=== PATIENT | female | born 1975 | race African-American/Black ===

== ENCOUNTER 2018-03-07 09:43 | Emergency (ER) | payer OTHER ==
[~2018-03-07] VITALS: Ht 190.5 cm; Wt 149.2 kg
[~2018-03-07 09:43] MED LIST: ASPIR 8181 MG ORAL; BENAZEPRIL HCL40 MG ORAL; HYDROCHLOROTHIA25 MG ORAL; KEFLEX500 MG ORAL; METFORMIN HCL1000 M1 ORAL; NORCO 5-325 TA1 EACH ORAL; OMEPRAZOLE20 M2 ORAL; PEPCID20 MG ORAL; POTASSIUM CHLO10 ME2 PO; TENORMIN50 MG ORAL; XANAX2 MG ORAL
[2018-03-07] MEDS ORDERED: SEROQUEL100 MG ORAL ×2 (09:58→10:25)
[2018-03-07] MEDS ORDERED: GABAPENTIN300 MG ORAL (09:58)
[2018-03-07] MEDS ORDERED: QUETIAPINE FUMA25 MG ORAL ×2 (09:58→10:25)
[2018-03-07 10:22] VITALS: BP 146/93
[2018-03-07] MEDS ORDERED: TRAMADOL HCL50 MG ORAL (10:25)
[2018-03-07] MEDS ORDERED: CEPHALEXIN500 MG ORAL (10:25)
[2018-03-07] MEDS ORDERED: Ketorolac 30mg Inj IM ONE (10:30)
[2018-03-07 10:36] VITALS: BP 142/87
[2018-03-07] MEDS ORDERED: LORazepam 1mg tab ONE (10:39)
[2018-03-07] MEDS ORDERED: LORazepam 1mg tab ORAL ONE (10:45)
--- NOTE | 2018-03-10 07:30 | Emergency Room Report ---
History of Present Illness General Chief Complaint: Pain Source: Patient Present Illness HPI 42-year-old female presents ED for evaluation. Notes history of sciatica. States that she's been having persistent pain going down both of her legs for several weeks now. Normally takes gabapentin but states it is not helping. Pain is sharp, 8 out of 10, radiating down both legs. Denies bowel or bladder incontinence. Denies any leg or motor weakness. All states she feels very anxious. Denies SI or HI. Denies hearing voices. Also notes a "insect bite" on her right sided abdomen 2 days. Patient denies fevers or chills. No other aggravating relieving factors. Denies any other associated symptoms Allergies: Coded Allergies: No Known Allergies (Unverified , 01/03/14) Patient History Past Medical History: DM, HTN Past Surgical History: none Pertinent Family History: none Social History: Denies: smoking, alcohol use, drug use Now: No Immunizations: UTD Reviewed Nursing Documentation: PMH: Agreed; PSxH: Agreed Nursing Documentation-PMH Past Medical History: No History, Except For Hx Hypertension: Yes Hx Diabetes: Yes Review of Systems All Other Systems: negative except mentioned in HPI Physical Exam Vital Signs Date Time Temp Pulse Resp B/P (MAP) Pulse Ox O2 Delivery O2 Flow Rate FiO2 03/07/18 09:49 97.9 115 17 146/93 98 Room Air Sp02 EP Interpretation: reviewed, normal General Appearance: no apparent distress, alert, GCS 15, non-toxic Head: normocephalic Eyes: bilateral eye normal inspection, bilateral eye PERRL ENT: normal ENT inspection Neck: normal inspection Respiratory: chest non-tender, lungs clear, normal breath sounds, speaking full sentences Cardiovascular #1: regular rate, rhythm, no edema Gastrointestinal: normal bowel sounds, non tender, soft, non-distended, no guarding, no rebound Rectal: deferred Genitourinary: no CVA tenderness Musculoskeletal: back normal, gait/station normal, normal range of motion, non- tender Neurologic: alert, oriented x3, responsive, motor strength/tone normal, sensory intact, speech normal Psychiatric: no suicidal/homicidal ideation, no delusions, anxious Skin: other - pustular head R abdomen. no induration/erythema. no discharge Lymphatic: normal inspection Medical Decision Making Diagnostic Impression: Primary Impression: Insect bite Qualified Codes: W57.XXXA - Bitten or stung by nonvenomous insect and other nonvenomous arthropods, initial encounter Additional Impression: Sciatica Qualified Codes: M54.31 - Sciatica, right side; M54.32 - Sciatica, left side ER Course Hospital Course 42-year-old female presents to ED with swelling/redness to abdomen, back pain Differential diagnoses include: Cellulitis, dermatitis, insect bite, abscess Clinical course Patient placed on stretcher. After initial history, physical exam reveals an obese female in no acute distress. On exam there is a site for mild erythema and induration to the R side of abdomen. There is no fluctuance. There is no tenderness. Patient has 5 out of 5 motor strength in the lower extremities. No sensory deficits. Given Toradol here. We will discharge with antibiotics. we will refill her seroquel. safe for discharge with close outpatient followup Diagnosis - insect bite, sciatica stable and discharged to home with prescription for keflex, tramadol, seroquel. Instructed to followup with PMD. Instructed return to ED if symptoms recur or worsen Last Vital Signs Date Time Temp Pulse Resp B/P (MAP) Pulse Ox O2 Delivery O2 Flow Rate FiO2 03/07/18 10:46 97.9 03/07/18 10:36 110 17 142/87 98 Room Air Status: improved Disposition: HOME, SELF-CARE Condition: Stable Scripts Cephalexin* (KEFLEX*) 500 Mg Capsule 500 MG ORAL EVERY 6 HOURS for 7 Days, CAP Prov: Navin Orozco MD 03/07/18 Tramadol Hcl* (ULTRAM*) 50 Mg Tablet 50 MG ORAL Q6H PRN for For Pain, #20 TAB 0 Refills Prov: Navin Orozco MD 03/07/18 Quetiapine Fumarate* (SEROQUEL*) 25 Mg Tablet 300 MG ORAL DAILY for 14 Days, TAB Prov: Navin Orozco MD 03/07/18 Quetiapine Fumarate* (SEROQUEL*) 100 Mg Tablet 100 MG ORAL TWICE A DAY for 14 Days, TAB Prov: Navin Orozco MD 03/07/18 Referrals: [facility],REFER Patient Instructions: Sciatica, [id number], Insect Bite, [id number] Navin Orozco MD Mar 10, 2018 07:30
== END 2018-03-07 10:47 | disposition home or self-care (01) ==
LOC: EMR 10:17
DX: S30.861A Insect bite (nonvenomous) of abdominal wall, initial encounter (principal); W57.XXXA Bitten or stung by nonvenomous insect and other nonvenomous arthropods, initial encounter; Y92.89 Other specified places as the place of occurrence of the external cause; M54.31 Sciatica, right side; M54.32 Sciatica, left side; E11.9 Type 2 diabetes mellitus without complications; I10 Essential (primary) hypertension
CPT/HCPCS: 96372; 99283; J1885

== ENCOUNTER 2018-03-12 15:56 | Emergency (ER) | payer OTHER ==
[~2018-03-12] VITALS: Ht 190.5 cm; Wt 149.2 kg
[~2018-03-12 15:56] MED LIST changes: +CEPHALEXIN500 MG ORAL; +GABAPENTIN300 MG ORAL; +QUETIAPINE FUMA25 MG ORAL; +SEROQUEL100 MG ORAL; +TRAMADOL HCL50 MG ORAL
[2018-03-12 16:00] VITALS: BP 133/83
--- NOTE | 2018-03-12 16:10 | Emergency Room Report ---
History of Present Illness General Chief Complaint: General Complaint Source: Medical Record Present Illness HPI 42-year-old female patient presents ER brought in by ambulance complaining of chest discomfort and anxiety. Reports symptoms present for one day. Reports history of anxiety in the past. Denies history of heart attack or stroke. Reports history of high blood pressure, states she has not been taking her blood pressure medications for "months". Reports history of smoking cigarettes. Denies calf pain. Denies shortness of breath. Reports it feels like "an air bubble" is in her chest. Denies trauma or injury. Reports pain is reproducible. Denies fever, abdominal pain, headache, shortness of breath. Denies thoughts of hurting herself or others at this time. Reports previously took lorazepam for anxiety, requesting prescription. Allergies: Coded Allergies: No Known Allergies (Unverified , 01/03/14) Patient History Past Medical History: see triage record Last Menstrual Period: 02/13/18 Reviewed Nursing Documentation: PMH: Agreed; PSxH: Agreed Nursing Documentation-PMH Past Medical History: No History, Except For Hx Hypertension: Yes Hx Diabetes: Yes History Of Psychiatric Problem: Yes Review of Systems All Other Systems: negative except mentioned in HPI Physical Exam Vital Signs Date Time Temp Pulse Resp B/P (MAP) Pulse Ox O2 Delivery O2 Flow Rate FiO2 03/12/18 15:58 98.1 113 18 133/83 100 Room Air Sp02 EP Interpretation: reviewed, normal General Appearance: well appearing, no apparent distress, alert, GCS 15, non- toxic Head: normocephalic, atraumatic Eyes: bilateral eye normal inspection, bilateral eye PERRL ENT: hearing grossly normal, normal pharynx, no angioedema, normal voice, uvula midline, moist mucus membranes Neck: full range of motion Respiratory: lungs clear, normal breath sounds, no rhonchi, no respiratory distress, no accessory muscle use, no wheezing, speaking full sentences, other - sternum TTP, no crepitus, no stridor Cardiovascular #1: regular rate, rhythm, no edema Cardiovascular #2: 2+ radial (R), 2+ radial (L) Gastrointestinal: non tender, soft, no mass, non-distended, no guarding, no rebound Musculoskeletal: back normal, digits/nails normal, gait/station normal, normal range of motion, non-tender, no calf tenderness, Meaghan's Sign negative Psychiatric: mood/affect normal Skin: no rash Medical Decision Making PA Attestation Dr. Orozco is my supervising Physician whom patient management has been discussed with. Diagnostic Impression: Primary Impression: Anxiety Additional Impressions: Non-cardiac chest pain Amphetamine user ER Course Pt. presents to the ED c/o chest pain. Ddx considered but are not limited to WI, arrhythmia, DVT, PE, penumonia, bronchitis, costochondritis, anxiety, pneumothorax. No calf swelling, negative Meaghan's sign, low suspicion for DVT pr PE per Well's criteria. Low suspicion for cardiac cause of pain. Will order labs to rule out. On PE, chest is TTP; chest pain likely musculoskeletal in nature. Patient instructed to take NSAIDs as needed for pain symptoms. Vital signs: are WNL, pt. is afebrile Ordered X-ray, labs, troponin, EKG and pain medication. Patient tachycardic, will continue to monitor. ER COURSE provided with aspirin pain. Provided with Ativan for anxiety. CBC and CMP unremarkable, no elevation WBCs or LFTs urine negative Urine drug screen positive for amphetamine, advised patient against use, patient reports agreement. Troponin negative CXR negative for acute disease, EKG shows no ST elevations or atrial fibrillation. Advised to discontinue smoking cigarettes. patient with close outpatient follow-up. Followup with primary care provider, discuss referral to cardiology. patient denies shortness of breath, EKG and chest x-ray unremarkable, troponin negative, low suspicion for WI or CHF. Chest pain reproducible, likely musculoskeletal in nature. Discuss anxiety medications with PCP. provide with contact information for mental health clinics to followup with. Will not provide refill of Lorazepam rx at discharge. DISCHARGE: -Rx provided for Tylenol for pain symptoms. At this time pt. is stable for d/c to home. Patient is resting comfortably, in no acute distress, nontoxic appearing, talking without difficulty. Will provide printed patient care instructions, and any necessary prescriptions. Patient instructed to follow with primary care provider in 1-3 days. Followup with primary care provider for further pain medication rx. Followup with learning specialist and eye doctor. Care plan and follow up instructions have been discussed with the patient prior to discharge. Take medications as directed. Patient questions asked and answered. Patient reports understanding and agreement to treatment plan. ER precautions given, patient instructed to return to ER immediately for any new or worsening of symptoms. - Please note that this Emergency Department Report was dictated using iGuiderste[employer]ician technology software, occasionally this can lead to erroneous entry secondary to interpretation by the dictation equipment. Labs Test 03/12/18 16:20 White Blood Count 3.7 K/UL (4.8-10.8) Red Blood Count 4.01 M/UL (4.20-5.40) Hemoglobin 11.6 G/DL (12.0-16.0) Hematocrit 33.6 % (37.0-47.0) Mean Corpuscular Volume 84 FL (80-99) Mean Corpuscular Hemoglobin 29.0 PG (27.0-31.0) Mean Corpuscular Hemoglobin Concent 34.6 G/DL (32.0-36.0) Red Cell Distribution Width 13.8 % (11.6-14.8) Platelet Count 297 K/UL (150-450) Mean Platelet Volume 5.1 FL (6.5-10.1) Neutrophils (%) (Auto) 37.5 % (45.0-75.0) Lymphocytes (%) (Auto) 47.5 % (20.0-45.0) Monocytes (%) (Auto) 10.1 % (1.0-10.0) Eosinophils (%) (Auto) 2.7 % (0.0-3.0) Basophils (%) (Auto) 2.2 % (0.0-2.0) Urine HCG, Qualitative Negative (NEGATIVE) Sodium Level 138 MMOL/L (136-145) Potassium Level 4.1 MMOL/L (3.5-5.1) Chloride Level 104 MMOL/L (98-107) Carbon Dioxide Level 25 MMOL/L (21-32) Anion Gap 9 mmol/L (5-15) Blood Urea Nitrogen 7 mg/dL (7-18) Creatinine 0.7 MG/DL (0.55-1.30) Estimat Glomerular Filtration Rate > 60 mL/min (>60) Glucose Level 111 MG/DL (74-106) Calcium Level 8.6 MG/DL (8.5-10.1) Total Bilirubin 0.3 MG/DL (0.2-1.0) Aspartate Amino Transf (AST/SGOT) 35 U/L (15-37) Alanine Aminotransferase (ALT/SGPT) 26 U/L (12-78) Alkaline Phosphatase 65 U/L (46-116) Troponin I 0.003 ng/mL (0.000-0.056) Total Protein 8.1 G/DL (6.4-8.2) Albumin 2.9 G/DL (3.4-5.0) Globulin 5.2 g/dL Albumin/Globulin Ratio 0.6 (1.0-2.7) Urine Opiates Screen Negative (NEGATIVE) Urine Barbiturates Screen Negative (NEGATIVE) Phencyclidine (PCP) Screen Negative (NEGATIVE) Urine Amphetamines Screen Positive (NEGATIVE) Urine Benzodiazepines Screen Negative (NEGATIVE) Urine Cocaine Screen Negative (NEGATIVE) Urine Marijuana (THC) Screen Negative (NEGATIVE) EKG Diagnostic Results Rate: tachycardiac Rhythm: NSR ST Segments: no acute changes ASA given to the pt in ED: Yes PA Scribe Text Amarjit Tobar PA-C Rhythm Strip Diag. Results EP Interpretation: yes Rate: 105 Rhythm: NSR, no PVC's, no ectopy PA Scribe Text Amarjit Tobar PA-C Chest X-Ray Diagnostic Results Chest X-Ray Diagnostic Results : Chest X-Ray Ordered: Yes # of Views/Limited/Complete: 1 View Indication: Chest Pain EP Interpretation: Yes PA Xray: Interpretation reviewed, by supervising MD, and agrees with findings. Interpretation: no consolidation, no effusion, no pneumothorax, no acute cardiopulmonary disease Impression: No acute disease PA Scribe Text Amarjit Tobar PA-C Last Vital Signs Date Time Temp Pulse Resp B/P (MAP) Pulse Ox O2 Delivery O2 Flow Rate FiO2 03/12/18 15:58 98.1 113 18 133/83 100 Room Air Status: improved Disposition: HOME, SELF-CARE Condition: Stable Scripts Acetaminophen* (TYLENOL EXTRA STRENGTH*) 500 Mg Tablet 500 MG ORAL Q8H PRN for Prn Headache/Temp > 101, #30 TAB 0 Refills Prov: Sergio Tobar 03/12/18 Patient Instructions: Generalized Anxiety Disorder, Nonspecific Chest Pain, [id number] Additional Instructions: Followup with primary care provider in 2-3 days, discuss blood pressure medications and referral to cardiology. Follow-up with mental health urgent care to discuss Take medications as directed. Patient questions asked and answered. ER precautions given, patient instructed to return to ER immediately for any new or worsening of symptoms. Sergio Tobar Mar 12, 2018 16:10
[2018-03-12] MEDS ORDERED: LORazepam 0.5mg tab ORAL ONE (16:30)
--- NOTE | 2018-03-12 16:45 | Diagnostic Imaging Report ---
Indication: Chest pain Technique: One view of the chest Comparison: Findings: Lungs and pleural spaces are clear. Heart size is normal Impression: No acute process
[2018-03-12 17:03] LABS: BASOPHILS % (AUTO) 2.2 % (0.0-2.0); EOSINOPHILS % (AUTO) 2.7 % (0.0-3.0); HEMATOCRIT 33.6 % (37.0-47.0); HEMOGLOBIN 11.6 G/DL (12.0-16.0); LYMPHOCYTES % (AUTO) 47.5 % (20.0-45.0); MEAN CORPUSCULAR VOLUME 84 FL (80-99); MONOCYTES % (AUTO) 10.1 % (1.0-10.0); NEUTROPHILS % (AUTO) 37.5 % (45.0-75.0); PLATELET COUNT 297 K/UL (150-450); RED BLOOD COUNT 4.01 M/UL (4.20-5.40); RED CELL DISTRIBUTION WIDTH 13.8 % (11.6-14.8); WHITE BLOOD COUNT 3.7 K/UL (4.8-10.8)
[2018-03-12 17:18] LABS: ANION GAP 9 mmol/L (5-15); BLOOD UREA NITROGEN 7 mg/dL (7-18); CALCIUM 8.6 MG/DL (8.5-10.1); CARBON DIOXIDE 25 MMOL/L (21-32); CHLORIDE 104 MMOL/L (98-107); CREATININE 0.7 MG/DL (0.55-1.30); POTASSIUM 4.1 MMOL/L (3.5-5.1); SODIUM 138 MMOL/L (136-145)
[2018-03-12 17:24] LABS: ALANINE AMINOTRANSFERASE 26 U/L (12-78); ALBUMIN 2.9 G/DL (3.4-5.0); ALBUMIN/GLOBULIN RATIO 0.6 (1.0-2.7); ALKALINE PHOSPHATASE 65 U/L (46-116); ASPARTATE AMINO TRANSFERASE 35 U/L (15-37); BILIRUBIN,TOTAL 0.3 MG/DL (0.2-1.0)
[2018-03-12] MEDS ORDERED: TYLENOL EXTRA500 MG ORAL (17:34)
[2018-03-12 18:29] VITALS: BP 133/83
--- NOTE | 2018-03-13 17:13 | Cardiology Report ---
APPROVED REPORT EKG Measurement Heart [id number] Sinus tachycardia Otherwise normal ECG
== END 2018-03-12 18:30 | disposition home or self-care (01) ==
LOC: EDBD 15:56 → EMR 17:50
DX: R07.9 Chest pain, unspecified (principal); F41.9 Anxiety disorder, unspecified; F15.90 Other stimulant use, unspecified, uncomplicated; I10 Essential (primary) hypertension; E11.9 Type 2 diabetes mellitus without complications; R00.0 Tachycardia, unspecified
CPT/HCPCS: 36415; 71045; 80053; 80307; 81025; 84484; 85025; 93005; 99283

== ENCOUNTER 2018-09-03 11:17 | Emergency (ER) | payer OTHER ==
[~2018-09-03] VITALS: Ht 190.5 cm; Wt 136.1 kg
[~2018-09-03 11:17] MED LIST changes: +TYLENOL EXTRA500 MG ORAL
[2018-09-03] MEDS ORDERED: LISINOPRIL20 MG ORAL (11:28)
--- NOTE | 2018-09-03 11:30 | NUR ---
ED Nurse Note: Patient walked into ED c/o migraine headache, nausea, and vomiting for 1 week. patient report she has been very stressful lately. patient is alert awake x4 ambulatory with steady gait. breathing unlabored and even.
[2018-09-03] MEDS ORDERED: Ketorolac 30mg Inj IV ONE (11:45)
[2018-09-03] MEDS ORDERED: DiphenhydrAMINE 50mg/ml Inj IVP ONE (11:45)
[2018-09-03] MEDS ORDERED: LORazepam Inj 2mg/ml 1ml IV ONE (11:45)
[2018-09-03] MEDS ORDERED: Metoclopramide 10mg/2ml Inj IVP ONE (11:45)
--- NOTE | 2018-09-03 12:07 | NUR ---
ED Nurse Note: patient went to CT
[2018-09-03 12:39] VITALS: BP 124/72
[2018-09-03 12:40] LABS: BASOPHILS % (AUTO) 1.5 % (0.0-2.0); EOSINOPHILS % (AUTO) 0.8 % (0.0-3.0); HEMATOCRIT 42.4 % (37.0-47.0); HEMOGLOBIN 14.4 G/DL (12.0-16.0); LYMPHOCYTES % (AUTO) 49.1 % (20.0-45.0); MEAN CORPUSCULAR VOLUME 85 FL (80-99); MONOCYTES % (AUTO) 11.8 % (1.0-10.0); NEUTROPHILS % (AUTO) 36.9 % (45.0-75.0); PLATELET COUNT 320 K/UL (150-450); RED BLOOD COUNT 4.96 M/UL (4.20-5.40); RED CELL DISTRIBUTION WIDTH 16.1 % (11.6-14.8)
[2018-09-03 12:45] LABS: ANION GAP 9 mmol/L (5-15); BLOOD UREA NITROGEN 10 mg/dL (7-18); CALCIUM 9.4 MG/DL (8.5-10.1); CARBON DIOXIDE 26 MMOL/L (21-32); CHLORIDE 100 MMOL/L (98-107); CREATININE 0.8 MG/DL (0.55-1.30); POTASSIUM 3.9 MMOL/L (3.5-5.1); SODIUM 135 MMOL/L (136-145)
--- NOTE | 2018-09-03 12:46 | Diagnostic Imaging Report ---
Indication: Headache Technique: Contiguous 5 mm thick transaxial imaging of the head obtained in a Siemens Sensation [address] scanner. Soft tissue and bone windows generated. Automatic Exposure Control was utilized. Total Dose length Product (DLP): 2804.[address] Dose Index Volume (CTDIvol): 70.38,70.38 mGy Comparison: none Findings: The size and configuration of the cortical sulci, basal cisterns, and ventricles are within normal limits for age. There is no mass effect, midline shift, or edema identified. There is no evidence of acute hemorrhage or abnormal intra-axial or extra-axial fluid collections. The bones and soft tissues are unremarkable. Impression: No mass effect, edema or acute bleed. Some limitation on this exam due to artifacts. The CT scanner at [facility] is accredited by the [employer] and the scans are performed using dose optimization techniques as appropriate to a performed exam including Automatic Exposure control.
[2018-09-03 12:50] LABS: ALANINE AMINOTRANSFERASE 22 U/L (12-78); ALBUMIN 3.9 G/DL (3.4-5.0); ALBUMIN/GLOBULIN RATIO 0.8 (1.0-2.7); ALKALINE PHOSPHATASE 71 U/L (46-116); ASPARTATE AMINO TRANSFERASE 26 U/L (15-37); BILIRUBIN,TOTAL 0.3 MG/DL (0.2-1.0)
[2018-09-03] MEDS ORDERED: NORCO 5-325 TA1 EACH ORAL (13:01)
[2018-09-03] MEDS ORDERED: IBUPROFEN600 MG ORAL (13:01)
--- NOTE | 2018-09-03 13:24 | NUR ---
ER DISCHARGE NOTE: Patient is cleared to be discharged per ERMD DR FOREMAN, pt is aox4, on room air, with stable vital signs. pt was given dc and prescription instructions, pt was able to verbalize understanding, pt id band and iv site removed without complications. pt is able to ambulate with steady gait. pt took all belongings. verfied patient with her old address, patient reported a new address to the registration, information updated on the emar.
--- NOTE | 2018-09-03 14:43 | Emergency Room Report ---
History of Present Illness General Chief Complaint: Headache Source: Patient Present Illness HPI Patient presents emergency department today complaining of a headache. Patient states that she is under a lot of stress. Patient is homeless and not sleeping and has a history of migraines. She feels that she has another onset of migraine. She states that she had a history of abnormal CAT scan was told that she has cerebellar swelling. However she states that she never got further follow-up. Patient states that her headache is worse than usual. Denies any photophobia or phonophobia. Does have nausea but no vomiting. Denies any neck stiffness or fever. No history of trauma is noted. Symptoms noted to be moderate to severe. No other modifying factors. No other associated signs and symptoms. No other complaints were noted. Allergies: Coded Allergies: No Known Allergies (Unverified , 09/03/18) Patient History Past Medical History: DM, HTN Past Surgical History: none Pertinent Family History: none Social History: Denies: smoking, alcohol use, drug use Last Menstrual Period: 08/01/18 Now: No Reviewed Nursing Documentation: PMH: Agreed; PSxH: Agreed Nursing Documentation-PMH Past Medical History: No History, Except For Hx Hypertension: Yes Hx Diabetes: Yes Review of Systems All Other Systems: negative except mentioned in HPI Physical Exam Vital Signs Date Time Temp Pulse Resp B/P (MAP) Pulse Ox O2 Delivery O2 Flow Rate FiO2 09/03/18 11:23 97.9 108 18 96 Room Air 09/03/18 12:39 124/72 Sp02 EP Interpretation: reviewed, normal General Appearance: alert, moderate distress Head: atraumatic Eyes: bilateral eye normal inspection ENT: normal ENT inspection, hearing grossly normal, normal voice Neck: normal inspection, full range of motion, supple, no bony tend Respiratory: normal inspection, lungs clear, normal breath sounds, no respiratory distress, no retraction, no wheezing Cardiovascular #1: regular rate, rhythm, no edema Gastrointestinal: normal inspection, normal bowel sounds, non tender, soft, no guarding, no hernia Genitourinary: no CVA tenderness Musculoskeletal: normal inspection, back normal, normal range of motion Neurologic: normal inspection, alert, responsive, speech normal Psychiatric: normal inspection, judgement/insight normal, mood/affect normal Skin: normal inspection, normal color, no rash Medical Decision Making Diagnostic Impression: Primary Impression: Stress reaction Additional Impression: Headache ER Course Patient presents emergency department today complaining headache and stress reaction. Differential considerations include acute intracranial injury, migraine headache, stress reaction just name a few. Patient states that she had a history of abnormal CAT scan because of this I felt this highly complex case this is a atypical presentation of a headache given the possible history of a stroke I felt the patient require CT scan for further evaluation. Head CT was noted be negative. . Therefore felt the patient could be discharged home. Patient is advised to follow up with primary doctor in 2-3 days and return the emergency room for any worsening symptoms and as needed. Patient felt better after receiving pain medications. CT/MRI/US Diagnostic Results CT/MRI/US Diagnostic Results : Imaging Test Ordered: head ct neg Last Vital Signs Date Time Temp Pulse Resp B/P (MAP) Pulse Ox O2 Delivery O2 Flow Rate FiO2 09/03/18 12:39 97.9 98 18 124/72 96 Room Air Disposition: HOME, SELF-CARE Condition: Stable Scripts Hydrocodone Bit/Acetaminophen 5-325* (NORCO 5-325*) 1 Each Tablet 1 TAB ORAL Q6H PRN for For Pain, #10 TAB 0 Refills Prov: Scotty Teran MD 09/03/18 Ibuprofen* (MOTRIN*) 600 Mg Tablet 600 MG ORAL Q8H PRN for For Pain, #20 TAB 0 Refills Prov: Scotty Teran MD 09/03/18 Referrals: NOT CHOSEN IPA/,REFERRING Patient Instructions: Tension Headache, Stress and Stress Management Scotty Teran MD September 03, 2018 14:43
[2018-09-03 15:22] VITALS: BP 124/72
--- NOTE | 2018-09-04 14:22 | Cardiology Report ---
APPROVED REPORT EKG Measurement Heart [id number] Normal sinus rhythm Rightward axis T wave abnormality, consider inferior ischemia Abnormal ECG
[2018-09-04] MEDS ORDERED: IBUPROFEN600 MG ORAL (22:57)
== END 2018-09-03 13:24 | disposition home or self-care (01) ==
LOC: EMR 12:27
DX: R51 Headache (principal); F43.9 Reaction to severe stress, unspecified; E11.9 Type 2 diabetes mellitus without complications
CPT/HCPCS: 36415; 70450; 80053; 81025; 84484; 85025; 93005; 96374; 96375; 99284; J1200; J1885; J2765

== ENCOUNTER 2018-09-04 22:13 | Emergency (ER) | payer OTHER ==
[~2018-09-04] VITALS: Ht 190.5 cm; Wt 149.2 kg
[~2018-09-04 22:13] MED LIST changes: +IBUPROFEN600 MG ORAL; +LISINOPRIL20 MG ORAL
[2018-09-04 22:35] VITALS: BP 138/74
--- NOTE | 2018-09-04 22:35 | NUR ---
ER Nurse Note: Pt BIBA c/o headache 9/10 sharp pain since 2 weeks. Pt also stated she is out of her medication; gabapentin and a medication for sleep. Pt came to ER few days ago for same reason. Will continue to yoly.
[2018-09-04] MEDS ORDERED: IBUPROFEN600 MG ORAL (22:57)
--- NOTE | 2018-09-04 22:57 | Emergency Room Report ---
History of Present Illness General Chief Complaint: Headache Source: Patient Present Illness HPI Is a 43-year-old female with a history of high blood pressure. She presents with complaint of headache. She was here yesterday for the same. She said the ONStor is not helping. She had blood work done and CT scan were normal. Denies any fever chills but denies any nausea vomiting. Headache is throbbing in nature. Diffuse in nature. She said she was on gabapentin 800 mg 4 times a day. Been out for a month. She wants refill on it. She thinks is causing a problem. Denies any other complaint. Allergies: Coded Allergies: No Known Allergies (Unverified , 09/04/18) Patient History Past Medical History: see triage record, old chart reviewed Past Surgical History: none Pertinent Family History: none Social History: Denies: smoking Last Menstrual Period: 08-01-2018 Now: No Immunizations: other Reviewed Nursing Documentation: PMH: Agreed; PSxH: Agreed Nursing Documentation-PMH Hx Hypertension: Yes Hx Diabetes: Yes History Of Psychiatric Problem: Yes - ANXIETY, DEPRESSION Review of Systems Eye: Denies: eye pain, blurred vision ENT: Denies: ear pain, nose congestion, throat swelling Respiratory: Denies: cough, shortness of breath Cardiovascular: Denies: chest pain, palpitations Gastrointestinal: Denies: abdominal pain, diarrhea, nausea, vomiting Musculoskeletal: Denies: back pain, joint pain Skin: Denies: rash Neurological: Reports: headache; Denies: numbness Endocrine: Denies: increased thirst, increased urine Hematologic/Lymphatic: Denies: easy bruising All Other Systems: negative except mentioned in HPI Physical Exam Vital Signs Date Time Temp Pulse Resp B/P (MAP) Pulse Ox O2 Delivery O2 Flow Rate FiO2 09/04/18 22:24 98.1 94 18 97 Room Air 09/04/18 22:35 138/74 vitals normal Sp02 EP Interpretation: reviewed, normal General Appearance: well appearing, no apparent distress, alert, obese Head: normocephalic, atraumatic Eyes: bilateral eye PERRL, bilateral eye EOMI ENT: hearing grossly normal, normal pharynx Neck: full range of motion, supple, no meningismus Respiratory: chest non-tender, lungs clear, normal breath sounds Cardiovascular #1: regular rate, rhythm, no murmur Gastrointestinal: normal bowel sounds, non tender, no mass, no organomegaly, no bruit, non-distended Musculoskeletal: back normal, gait/station normal, normal range of motion Psychiatric: mood/affect normal Skin: warm/dry Medical Decision Making Diagnostic Impression: Primary Impression: Headache Qualified Codes: G44.209 - Tension-type headache, unspecified, not intractable Additional Impression: Stress reaction ER Course Patient present with headache. I see no evidence of neoplastic process, meningitis or bleed. We'll discharge home. Last Vital Signs Date Time Temp Pulse Resp B/P (MAP) Pulse Ox O2 Delivery O2 Flow Rate FiO2 09/04/18 22:35 98.1 94 18 138/74 97 Room Air Status: unchanged Disposition: HOME, SELF-CARE Condition: Stable Scripts Ibuprofen* (MOTRIN*) 600 Mg Tablet 600 MG ORAL THREE TIMES A DAY, #30 TAB 0 Refills Prov: Avel Olvera MD 09/04/18 Patient Instructions: Tension Headache Additional Instructions: Follow-up with your Dr. in 7 days. Return if worse. Avel Olvera MD September 04, 2018 22:57
[2018-09-04 23:33] VITALS: BP 138/74
--- NOTE | 2018-09-04 23:33 | NUR ---
ER Nurse Note: All orders completed per ERMD orders. Pt seen, treated, medically cleared for discharge by ERMD. Discharge instructions and prescriptions given with repeat verbazliaion by pt. Instructed pt to follow up with primary care provider within one week. Pt a&ox4, VSS, no signs of distress. ID band removed. Pt left with all belongings with steady gait via taxi voucher provided by [facility] [place].
== END 2018-09-04 23:45 | disposition home or self-care (01) ==
LOC: EDBD 22:13 → EMR 23:42
DX: G44.209 Tension-type headache, unspecified, not intractable (principal); F43.9 Reaction to severe stress, unspecified; I10 Essential (primary) hypertension; E11.9 Type 2 diabetes mellitus without complications; F41.9 Anxiety disorder, unspecified; F32.9 Major depressive disorder, single episode, unspecified
CPT/HCPCS: 99282